=== PATIENT | male | born 1975 | race Two or more races ===

== ENCOUNTER 2023-04-16 12:23 | Emergency (ER) | payer OTHER ==
[~2023-04-16] VITALS: Ht 170.2 cm; Wt 81.6 kg
[2023-04-16] MEDS ORDERED: COZAAR100 MG PO (12:44)
[2023-04-16] MEDS ORDERED: CRESTOR20 MG PO (12:45)
[2023-04-16] MEDS ORDERED: GARLIPURE600 MG PO (12:45)
[2023-04-16 13:24] LABS: HEMATOCRIT 43.1 % (39.0-48.0); HEMOGLOBIN 14.8 g/dL (13-16.00); MEAN CELL VOLUME 93.4 fL (80.0-100.00); MEAN CORPUSCULAR HEMOGLOBIN 32.2 pg (27.00-32.0); MEAN CORPUSCULAR HGB CONC 34.4 g/dl (32.0-36.0); PLATELET COUNT 168 K/uL (150-450); RED BLOOD COUNT 4.61 M/uL (4.00-6.00); RED CELL DISTRIBUTION WIDTH 13.1 % (11.5-14.5)
[2023-04-16 13:43] LABS: URINE APPEARANCE Clear; URINE BILIRRUBIN Negative (NEGATIVE); URINE BLOOD Negative; URINE COLOR Yellow; URINE GLUCOSE Negative (NEGATIVE); URINE LEUKOCYTE Trace; URINE NITRATE Negative
[2023-04-16 13:46] LABS: ALBUMIN 3.9 gm/dL (3.4-5.0); BILIRUBIN TOTAL 0.87 mg/dL (0.3-1.2); CALCIUM 9.1 mg/dL (8.5-10.1); CREATININE SERUM 1.26 mg/dL (0.70-1.30); GFR 60.83; GLOBULINA 3.8 G/DL (2.4-3.5); POTASSIUM 3.41 mEq/L (3.5-5.1); TOTAL PROTEIN 7.7 gm/dL (6.4-8.2)
[2023-04-16 13:47] LABS: URINE EPITHELIAL CELLS 4.3 uL (0.0-38.8); URINE RBC 5.4 uL (0.0-20.8); URINE WBC 19.9 uL (0.0-23.2)
[2023-04-16 13:49] LABS: URINE PROTEIN 100 (NEGATIVE)
== END 2023-04-16 18:04 | disposition home or self-care (01) ==
LOC: ER 12:23
PROVIDERS: Emergency Medicine
DX: R53.81 Other malaise (principal); I10 Essential (primary) hypertension; Z91.013 Allergy to seafood